=== PATIENT | male | born 1945 | race Caucasian/White ===

== ENCOUNTER → 2017-09-26 | Outpatient (CLI) | payer MEDICARE, BC ==
[~2017-09-26] MED LIST: ATORVASTATIN CA80 MG PO; HYDROCODON-ACE1 EAC7 PO; LORAZEPAM0.5 MG PO; NAPROXEN500 MG PO
== END | disposition home or self-care (01) ==
LOC: CDC 12:17
DX: C34.90 Malignant neoplasm of unspecified part of unspecified bronchus or lung (principal)
CPT/HCPCS: 93000

== ENCOUNTER 2017-10-04 05:21 | Day surgery (SDC) | payer OTHER, BC ==
[~2017-10-04] VITALS: Ht 172.7 cm; Wt 113.4 kg
[~2017-10-04 05:21] MED LIST changes: +AMLODIPINE BESYL5 MG PO; +ATIVAN0.5 MG PO; +BUPROPION HCL100 M1 PO; +QUETIAPINE FUM300 MG PO; +SERTRALINE HCL100 MG PO
[2017-10-04 06:02] VITALS: BP 135/73
[2017-10-04 10:15] VITALS: BP 127/78
[2017-10-04 11:13] VITALS: BP 133/63
== END 2017-10-04 11:35 | disposition home or self-care (01) ==
LOC: SDC 05:21
PROC: 07B74ZX Excision of Thorax Lymphatic, Percutaneous Endoscopic Approach, Diagnostic (ICD-10-PCS; principal; 2017-10-04)
DX: C34.2 Malignant neoplasm of middle lobe, bronchus or lung (principal); J44.9 Chronic obstructive pulmonary disease, unspecified; I12.9 Hypertensive chronic kidney disease with stage 1 through stage 4 chronic kidney disease, or unspecified chronic kidney disease; N18.9 Chronic kidney disease, unspecified; Z99.81 Dependence on supplemental oxygen; Z87.891 Personal history of nicotine dependence; Z80.42 Family history of malignant neoplasm of prostate; Z80.1 Family history of malignant neoplasm of trachea, bronchus and lung
CPT/HCPCS: 86850; 86900; 86901; 88305; J0330; J0690; J1100; J1170; J2405; J2710; J3010